=== PATIENT | female | born 1935 | race Caucasian/White ===

== ENCOUNTER 2016-08-23 19:14 | Emergency (ER) | payer OTHER, MEDICAID ==
[~2016-08-23] VITALS: Ht 165.1 cm; Wt 49.9 kg
[2016-08-23 19:26] VITALS: BP 120/84; PULSE 95; RESP 18; TEMP 98.8; O2SAT 96
--- NOTE | 2016-08-23 19:30 | NUR ---
Placed in room 6 . [address], blood pressure machine and pulse oximeter. To gown for exam. Side rails up.
--- NOTE | 2016-08-23 19:45 | NUR ---
Pt BIB EMS from board and care with c/o fever per facility. Paramedics reported that pt also had some congestion and coughing for the past few days. Pt is disoriented, appeared calm, T 98.3 oral, skin intact. no SOB or pain noted, no N/V/D. Rales at lower bases. WIll continue to monitor
--- NOTE | 2016-08-23 20:00 | NUR ---
at bedside examining pt
[2016-08-23] MEDS ORDERED: NS 500 ML IV SCH (20:05)
[2016-08-23 20:29] LABS: BASOPHILS % (AUTO) 0.3 % (0.0-2.0); EOSINOPHILS % (AUTO) 0.2 % (0.0-4.0); HEMATOCRIT 36.7 % (36-48); HEMOGLOBIN 12.1 g/dL (12.0-16.0); LYMPHOCYTES # (AUTO) 2.2 K/uL (1.0-5.5); LYMPHOCYTES % (AUTO) 26.4 % (20.5-51.5); MEAN CORPUSCULAR HEMOGLOBIN 29 pg (27-31); MEAN CORPUSCULAR HGB CONC 33 % (32-36); MEAN CORPUSCULAR VOLUME 87 fL (79.0-98.0); MONOCYTES # (AUTO) 0.6 K/uL (0.0-1.0); MONOCYTES % (AUTO) 6.7 % (1.7-9.3); NEUTROPHILS # (AUTO) 5.6 K/uL (1.8-7.7); NEUTROPHILS % (AUTO) 66.4 % (40.0-70.0); PLATELET COUNT (AUTO) 252 K/uL (130-430); RED BLOOD CELL COUNT(AUTO) 4.21 MIL/uL (4.2-6.2); RED CELL DISTRIBUTION WIDTH 13.6 % (9.0-15.0); WHITE BLOOD COUNT (AUTO) 8.4 K/uL (4.8-10.8)
[2016-08-23 20:35] LABS: BILIRUBIN,URINE 1+ (NEGATIVE); BLOOD, URINE 2+ (NEGATIVE); CLARITY/URINE SL HAZY (CLEAR); COLOR,URINE YELLOW (YELLOW); GLUCOSE,URINE TRACE (NEGATIVE); KETONES,URINE TRACE (NEGATIVE); LEUKOCYTE ESTERASE ,URINE TRACE (NEGATIVE); NITRITE, URINE NEGATIVE (NEGATIVE); PH,URINE 5.5 (5.0-8.0); PROTEIN URINE 1+ (NEGATIVE)
[2016-08-23 20:38] LABS: PROTHROMBIN TIME 11.3 SECS (9.5-12.5)
[2016-08-23 20:49] LABS: ALANINE AMINOTRANSFERASE 16 U/L (12-78); ANION GAP 10 (5-15); ASPARTATE AMINOTRANSFERASE 20 U/L (10-37); CALCIUM 8.7 mg/dL (8.4-11.0); CHLORIDE 102 mmol/L (98-107); CREATININE 0.73 mg/dL (0.55-1.30); GLUCOSE 127 mg/dL (70-99); POTASSIUM 3.6 mmol/L (3.5-5.1); SODIUM SERUM 136 mmol/L (136-145); TOTAL BILIRUBIN 0.4 mg/dL (0.0-1.0); TOTAL PROTEIN, SERUM 7.1 g/dL (6.4-8.3); UREA NITROGEN, BLOOD 21 mg/dL (8-21)
[2016-08-23 20:54] LABS: BACTERIA,URINE FEW /HPF (None Seen); CALCIUM OXALATE CRYSTALS,UR 0-10 /HPF (None Seen); RBC,URINE 20-50 /HPF (0-3)
[2016-08-23 20:55] LABS: MUCUS,URINE 3+ /LPF (None Seen)
--- NOTE | 2016-08-23 21:00 | NUR ---
blood cult x2, lactic acid ordered. 500mL NS bolus in progress
[2016-08-23] MEDS ORDERED: cefTRIAXone 1 GM IVPB PREMIX 50 ML IV ONE (21:15)
[2016-08-23] MEDS ORDERED: ALEN10TA6 PO (21:31)
--- NOTE | 2016-08-23 22:05 | NUR ---
Ceftriaxone IV administered per MD order
--- NOTE | 2016-08-23 23:05 | NUR ---
Pt in bed appeared resting comfortably, VSS, pt is calm.
--- NOTE | 2016-08-23 23:20 | NUR ---
Called Ravi Conklin at [phone] and Babar Conklin at [phone] [facility] pt needs to be discharged. Left voice messages.
--- NOTE | 2016-08-23 23:55 | NUR ---
Attempted to called Pt's sons again for discharge. Unable to connect
--- NOTE | 2016-08-23 23:55 | NUR ---
RECIEVED CALL FROM MASOUD, ON DUTY STAFF FOR [facility]. SHE STATED SHE WOULD ATTEMPT TO REACH HER SPECIAL DELIVERY MESSENGER, [facility]COL[facility] THAYER, TO ARRANGE FOR [facility] FOR THE PT. Addendum: 08/24/16 at 0531 by [email or web address] CALL RECIEVED AT 0055 08/24/16, NOT [phone] 08/23/16.
--- NOTE | 2016-08-24 00:30 | NUR ---
MULTIPLE ATTEMPTS MADE TO CONTACT THE 'S BOARD AND CARE FACILITY, [facility]. ALL CALLS TO THE FOLLOWING NUMBERS. [phone] & [phone], WENT STRAIGHT TO . Addendum: 08/24/16 at 0538 by SDEDRW FACILITIES NUMBER IS [phone].
--- NOTE | 2016-08-24 00:50 | NUR ---
CALL PLACED TO [facility] TO REQUEST A DEPUTY GO TO THE PT'S FACILITY AND SEE IF THERE WAS A STAFF MEMBER ON DUTY. AWAITING REPLY.
--- NOTE | 2016-08-24 01:00 | NUR ---
RECIEVED CALL FROM [employer] TH[employer], STAFF SKIN CARVER. HE STATED THEY WILL HAVE A APPAREL FASHION DESIGNER AVAILABLE AT 0500 TO TRANSPORT THE PT. I INFORMED HIM THAT THIS WAS NOT SATISFACTORY, BECAUSE IS DECREASED THE ER'S OPERATING CAPACITY. HE STATED THAT HE WOULD WORK TO ARRANGE TRANSPORT AND FOLLOW UP WITH US.
--- NOTE | 2016-08-24 01:00 | NUR ---
Called [facility], talked to product support representative Krunal. Krunal stated that the facility has a tow driver at 5 am, will come to pick pt up at 5 am.
--- NOTE | 2016-08-24 01:30 | NUR ---
FOLLOW UP CALL PLACED TO LINCOLN THAYER AT [phone]. CALL WENT STRAIGHT TO .
--- NOTE | 2016-08-24 02:00 | NUR ---
Pt appeared resting comfortably
--- NOTE | 2016-08-24 02:00 | NUR ---
FOLLOW UP CALL PLACED TO [facility]COL[facility] THAYER AT [phone]. CALL WENT STRAIGHT TO .
--- NOTE | 2016-08-24 03:00 | NUR ---
Pt in bed, appeared resting comfortably. No distress noted
--- NOTE | 2016-08-24 03:00 | NUR ---
FOLLOW UP CALL PLACED TO LINCOLN THAYER AT [phone]. CALL WENT STRAIGHT TO .
--- NOTE | 2016-08-24 04:00 | NUR ---
FOLLOW UP CALL PLACED TO LINCOL[facility] THAYER AT [phone]. CALL WENT STRAIGHT TO .
--- NOTE | 2016-08-24 04:00 | NUR ---
Pt in bed, VSS, will continue to monitor
--- NOTE | 2016-08-24 05:00 | NUR ---
MULTIPLE ATTEMPTS MADE TO REACH [facility]ACA, . ALL CALL WENT STRAIGTH TO .
--- NOTE | 2016-08-24 05:05 | NUR ---
RECIEVED CALL FROM [facility] PT'S SON. I INFORMED HIM THAT THE PT NEEDED A RIDE HOME. HE STATED HE WOULD CONTACT THE FACILITY TO TRY AND ARRANGE A RIDE FOR THE PT.
--- NOTE | 2016-08-24 05:15 | NUR ---
REPLY RECIFVED FROM MASOUD, . SHE STATES THAT SHE WILL ATTEMPT TO REACH BOTH [facility]COLN FLACA AND THE FACILITIES AUTOMATIC THREAD WINDER. AWAITING REPLY.
[2016-08-24 06:00] VITALS: BP 136/72; PULSE 76; RESP 16; TEMP 98; O2SAT 98
--- NOTE | 2016-08-24 06:00 | NUR ---
Patient given written and verbal discharge instructions and verbalizes understanding. ER MD Marie discussed with patient the results and treatment provided.Patient in stable condition. ID arm band removed. IV catheter removed intact and dressing applied, no active bleeding. Rx of bactrim given. Patient educated on pain management and to follow up with PMD. Pain Scale 0/10 Opportunity for questions provided and answered. Pt accompanied by facility's personnel
== END 2016-08-24 06:00 | disposition home or self-care (01) ==
LOC: SED 19:14
DX: N39.0 Urinary tract infection, site not specified (principal); R05 Cough; E11.9 Type 2 diabetes mellitus without complications; I10 Essential (primary) hypertension; F03.90 Unspecified dementia, unspecified severity, without behavioral disturbance, psychotic disturbance, mood disturbance, and anxiety; M81.0 Age-related osteoporosis without current pathological fracture; Z88.8 Allergy status to other drugs, medicaments and biological substances; Z88.5 Allergy status to narcotic agent
CPT/HCPCS: 36415; 71010; 80053; 81000; 83605; 85025; 85610; 85730; 87040; 87086; 93005; 96361; 96365; 99285; J0696; J7040